=== PATIENT | female | born 2005 | race Caucasian/White ===

== ENCOUNTER 2025-05-08 19:18 | Emergency (ER) | payer OTHER, SELFPAY ==
--- NOTE | ~2025-05-08 | CT_ITS ---
EXAMINATION: CT abdomen pelvis wo con DATE: 05/08/2025 21:06 INDICATION: Right flank pain. TECHNIQUE: Computed tomography (CT) of the abdomen and pelvis was performed without intravenous contrast. Automated exposure control and iterative reconstruction technique were employed. The dose-length product was 389.94 mGy-cm. COMPARISON: None. FINDINGS: Lung bases do not show acute findings. No focal lesions of liver and spleen. Gallbladder, pancreas do not show acute findings. The left kidney shows no evidence of calculi are obstruction. Mild right hydronephrosis is noted due to tiny 1 to 2 mm stone in the right ureter at L4 level. No evidence of bowel obstruction. Normal size appendix. No pelvic mass or fluid collections. No acute findings of lumbar spine and pelvic bones. IMPRESSION: 1. Limited noncontrast examination is not optimal to evaluate solid viscera, neoplasms and vascular structures. 2. Tiny, 1 to 2 mm calculus in the right ureter at L4 level causing mild right hydronephrosis. Reviewed, dictated and finalized at location [facility]. [facility] IMPRESSION: 1. Limited noncontrast examination is not optimal to evaluate solid viscera, ne oplasms and vascular structures. 2. Tiny, 1 to 2 mm calculus in the right ureter at L4 level causing mild right hydronephrosis.
[2025-05-08 19:45] VITALS: BP 139/85; PULSE 93; RESP 16; TEMP 36.7; O2SAT 100
[2025-05-08 20:36] VITALS: BP 133/78; PULSE 85; RESP 18; O2SAT 98
[2025-05-08 20:53] LABS: BEDSIDEPREGUCG Negative (Negative)
[2025-05-08 20:58] LABS: Hematocrit 41.3 % (37.0-47.0); Hemoglobin 14.2 g/dL (12.0-15.0); Immature Granulocyte Percent A 0.5 % (0-0.5); Lymphocytes Absolute Auto 2.06 K/mm3 (0.9-3.2); Mean Corpuscular HGB Conc 34.4 g/dl (32-36); Mean Corpuscular Hemoglobin 29.5 pg (26-34); Mean Corpuscular Volume 85.7 fl (80-100); Nucleated Red Blood Cells Absolute Auto 0.000 K/mm3 (0.0-0.012); Nucleated Red Blood Cells Perc 0.0 % (0.0-0.2); Platelet Count Result 299 k/mm3 (150-375); Red Blood Count 4.82 M/mm3 (4.2-5.4); White Blood Count 6.6 K/mm3 (4.5-10.0)
[2025-05-08 21:03] LABS: Add Urine Microscopic? YES; Appearance Urine Clear (Clear); Glucose Urine UA Negative (Negative); Leukocyte Esterase Ur Negative LEU/UL (Negative); Nitrate Urine Negative (Negative); Non Pathogenic Casts 0-2; Specific Grav Ur 1.015 (1.001-1.035)
--- NOTE | 2025-05-08 21:03 | ED_ITS ---
HPI - General Adult General Chief complaint: Abdominal Pain Stated complaint: right flank started today Time Seen by Provider: 05/08/25 20:48 History of Present Illness HPI narrative: Patient 20-year-old female who presents emergency department chief complaint of right flank pain and nausea vomiting patient reports symptoms started around 11:00 a.m. today patient reports no blood in her urine denies urinary symptoms the patient states that she has had no prior abdominal surgeries reports her last menstrual period was within the last month. Related Data Allergies Allergy/AdvReac Type Severity Reaction Status Date / Time No Known Allergies Allergy Mild Verified 05/08/25 19:48 Review of Systems 2 Review of Systems: A 10 system review of systems was completed on the patient and is negative except for what is stated in the HPI. Nursing and ancillary documentation was reviewed. Exam 2 Narrative: GENERAL: Well-appearing, well-nourished, and in no acute distress. HEAD: Normocephalic, atraumatic. EYES: PERRLA and EOMI. ENT: Nares clear, no rhinorrhea or epistaxis. Mucous membranes moist. NECK: Supple. CHEST: Clear to auscultation. No respiratory distress. HEART: Regular rate and rhythm. No murmur heard. Normal peripheral pulses. ABDOMEN: Soft, nontender, nondistended, normal active bowel sounds. EXTREMITIES: Normal range of motion. No edema. SKIN: Warm, dry, no rash. NEURO: No focal deficits. Alert and oriented x3. PSYCH: Normal mood and affect. Course Vital Signs Vital signs: Vital Signs Temperature 36.7 C 05/08/25 19:45 Pulse Rate 93 05/08/25 19:45 Respiratory Rate 16 05/08/25 19:45 Blood Pressure 139/85 05/08/25 19:45 Pulse Oximetry 100 05/08/25 19:45 Oxygen Delivery Room Air 05/08/25 19:45 Temperature 36.7 C 05/08/25 19:45 Pulse Rate 85 05/08/25 20:36 Respiratory Rate 18 05/08/25 20:36 Blood Pressure 133/78 05/08/25 20:36 Pulse Oximetry 98 05/08/25 20:36 Oxygen Delivery Room Air 05/08/25 19:45 [facility] MDM Narrative Medical decision making narrative: Laboratory studies were obtained on the patient showed normal CBC normal CMP patient is currently resting comfortably CT scan showed a 1-2 mm stone at the UVJ on the right urinalysis did show 21-50 red blood cells in the urine The patient will be started on Flomax given a urine strainer and also given a prescription for pain medication antiemetics will be referred to Urology Differential Diagnosis Differential Diagnosis: Cholelithiasis, choledocholithiasis, pancreatitis, ureterolithiasis, appendicitis Lab Data 05/08/25 20:48 05/08/25 20:48 Labs: Lab Results 05/08/25 05/08/25 Range/Units 20:48 20:51 WBC 6.6 (4.5-10.0) K/mm3 RBC 4.82 (4.2-5.4) M/mm3 Hgb 14.2 (12.0-15.0) g/dL Hct 41.3 (37.0-47.0) % MCV 85.7 (80-100) fl MCH 29.5 (26-34) pg MCHC 34.4 (32-36) g/dl RDW 11.8 (11.5-14.5) % Plt Count 299 (150-375) k/mm3 MPV 9.7 (7.4-10.4) fl Immature Gran % (Auto) 0.5 (0-0.5) % Neut % (Auto) 59.2 (45.5-73.1) % Lymph % (Auto) 31.3 (18.3-44.2) % [place] % (Auto) 7.3 (2.6-8.5) % Eos % (Auto) 0.9 (0-4.4) % Baso % (Auto) 0.8 (0.2-1.2) % Lymph # (Auto) 2.06 (0.9-3.2) K/mm3 [place] # (Auto) 0.5 (0.1-0.6) K/mm3 Eos # (Auto) 0.1 (0-0.3) K/mm3 Baso # (Auto) 0.1 (0.0-0.1) K/mm3 Abs Immat Gran (auto) 0.03 (0.00-0.031) K/mm3 Absolute Neuts (auto) 3.9 (1.3-6.7) K/mm3 Absolute Nucleated RBC 0.000 (0.0-0.012) K/mm3 Nucleated RBC % 0.0 (0.0-0.2) % Sodium 139 (137-145) mmol/L Potassium 3.8 (3.4-5.0) mmol/L Chloride 105 (98-107) mmol/L Carbon Dioxide 26 (22-30) mmol/L Anion Gap 8 (4-12) mmol/L BUN 13 (7-17) mg/dL Creatinine 0.99 (0.7-1.0) mg/dL Estim Creat Clear Calc 104 ml/min Estimated GFR > 60 (59 - ) Glucose 91 (65-110) mg/dL Calcium 9.6 (8.4-10.2) mg/dL Total Bilirubin 0.6 (0.2-1.3) mg/dL AST 28 (14-36) U/L ALT 18 (6-35) U/L Alkaline Phosphatase 75 (38-126) U/L Total Protein 8.2 (6.3-8.2) g/dL Albumin 4.9 (3.5-5.1) g/dL Lipase 84 (23-300) U/L Urine Color Yellow (Yellow) Urine Appearance Clear (Clear) Urine pH 6.0 (5.0-9.0) Ur Specific [place] 1.015 (1.001-1.035) Urine Protein Negative (Negative) mg/dL Urine Glucose (UA) Negative (Negative) mg/dL Urine Ketones Trace H (Negative) mg/dL Ur Blood (Man) 3+ H (Negative) Urine Nitrate Negative (Negative) Urine Bilirubin Negative (Negative) Urine Urobilinogen 0.2 (<2.0) mg/dL Leukocyte Esterase Rfl Negative (Negative) JOHNNIE/UL Urine RBC 21-50 H (0-2) /hpf Urine WBC 0-5 (0-3) /hpf Ur Squamous Epith Cells Occasional (Few) /hpf Urine Bacteria None seen /hpf Urine Casts 0-2 POC Urine HCG, Qual Negative (Negative) Imaging Data Radiologist's impression: ITS Impressions Abdomen/Pelvis CT 05/08/25 21:12 IMPRESSION: 1. Limited noncontrast examination is not optimal to evaluate solid viscera, neoplasms and vascular structures. 2. Tiny, 1 to 2 mm calculus in the right ureter at L4 level causing mild right hydronephrosis. Discharge Plan Discharge Clinical Impression: Ureterolithiasis, Acute right flank pain Patient Disposition: Home Condition: Stable Instructions: Antibiotic Form, How to Strain Your Urine (ED), Abdominal Pain (ED), Flank Pain (ED), Ureteral Stones (ED) Patient Language: Hong Konger Prescriptions: New hydrocodone-acetaminophen 5-325 mg tablet 1 tablet PO Q6H PRN (Reason: pain) 3 Days Qty: 12 0RF tamsulosin 0.4 mg capsule 0.4 mg PO DAILY Qty: 10 0RF ondansetron 4 mg tablet,disintegrating 4 mg PO Q8H PRN (Reason: nausea and vomiting) Qty: 10 0RF Follow-up/Referrals: Chris Garcia MD [Physician, Family Practice] Trung Rogers MD [Physician, Urology] UNKNOWN,DOCTOR [Primary Care Provider] Time of Disposition: 21:31
[2025-05-08 21:06] LABS: Alanine Aminotransferase 18 U/L (6-35); Albumin Level 4.9 g/dL (3.5-5.1); Alkaline Phosphatase 75 U/L (38-126); Anion Gap 8 mmol/L (4-12); Aspartate Amino Transferase 28 U/L (14-36); Bilirubin,Total 0.6 mg/dL (0.2-1.3); Blood Urea Nitrogen 13 mg/dL (7-17); Calcium 9.6 mg/dL (8.4-10.2); Carbon Dioxide 26 mmol/L (22-30); Chloride 105 mmol/L (98-107); Estimated CRCL calculation 104 ml/min; Estimated Glomerular Filt Rate > 60; Glucose 91 mg/dL (65-110); Lipase 84 U/L (23-300); Potassium 3.8 mmol/L (3.4-5.0); Sodium 139 mmol/L (137-145); Total Protein 8.2 g/dL (6.3-8.2)
--- OUTSIDE RECORDS SUMMARY | 2025-05-08 21:42 | XMS_ITS | Clinical Summary ---
Author Organization [facility] Address [address] [place] [address] Care Team Providers Care Thermostat Maker Name Role Phone Deidra Dunne MD Primary Care Provider Source Comments [facility],non-owned Affiliates and Associated Physician Practices is amultiple site organization consisting of ambulatory clinics and hospital sitesin [place] and [place]. This disclosure is being madepursuant to the Care Everywhere program and may not contain all information available regarding this patient. Last updated 18.[facility] Allergies No known active allergies Medications * Be aware that medications may not be up to date on this document. Alwaysverify current medications with the patient. Ibuprofen (ADVIL PO) Take 400 mg by mouth Active Active Problems Problem Noted Date Diagnosed Date Closed avulsion fracture of right ankle 03/25/20 18 Social History Tobacco Use Types Packs/Day Years Used Date Smoking Tobacco: Never Smokeless Tobacco: Never Comments No Sex and Gender Information Value Date Recorded Sex Assigned at Not on file Legal Sex Female 6:48 AM [employer] Gender Identity Not on file Sexual Orientation Not on file Last Filed Vital Signs Vital Sign Reading Time Taken Comments Blood Pressure - - Pulse - - Temperature - - Respiratory Rate - - Oxygen Saturation - - Inhaled Oxygen Concentration - - Weight 88.5 kg (195 lb) 04/01/2019 9:34 AM [employer] Height 172.7 cm (5' 8) 04/01/2019 9:34 AM [employer] Body Mass Index 29.65 04/01/2019 9:34 AM [employer] Plan of Treatment Health Maintenance Due Date Last Done Comments HIV SCREENING 2018 HPV VACCINE (1 - 3-dose series) 2018 CHLAMYDIA/GONORRHEA SCREENING 2019 MENINGOCOCCAL (Group B) VACC INE SHARED DECISION-MAKING (1 of 2 - Standard) 2019 HEPATITIS C SCREENING 02/14/2021 DTAP/TDAP/TD VACCINES (1 - Tdap) 2022 HEPATITIS B VACCINE (1 of 3 - 19+ 3-dose series) 2022 DEPRESSION SCREENING 05/28/2024 COVID-19 VACCINE (1 - 2024-2 6 season) 2025 INFLUENZA VACCINE (#1) 2025 ZOSTER VACCINE (1 of 2) 2053 HIB VACCINE Aged Out No longer eligi ble based on patient's age to complete this topic MENINGOCOCCAL GROUPS A/C/Y/W VACCINE Aged Out No longer eligible b ased on patient's age to complete this topic PNEUMOCOCCAL VACCINE Aged Out No long er eligible based on patient's age to complete this topic Insurance [facility] Address: [facility] [id number] [place] [address] [facility] [place] [place]: [place] [address] Care Teams Thermostat Maker Relationship Specialty Start Date End Date Deidra Dunne MD [address] [place] [id number] PCP - General Pediatrics 03/25/18
--- OUTSIDE RECORDS SUMMARY | 2025-05-08 21:42 | XMS_ITS | Clinical Summary ---
Author Organization [facility] Address [address] [place] [id number] Care Team Providers Care Sign Shop Supervisor Name Role Phone Deidra Dunne MD Primary Care Provider [phone] Allergies No known active allergies Medications No known medications Active Problems No known active problems Social History Tobacco Use Types Packs/Day Years Used Date Smoking Tobacco: Never Smokeless Tobacco: Never Personal Safety Answer Date Recorded Getting School Help Needed Not on file 08/10 Comments Unknown Sex and Gender Information Value Date Recorded Sex Assigned at Not on file Legal Sex Female 4:46 AM [employer] Gender Identity Not on file Sexual Orientation Not on file Last Filed Vital Signs Vital Sign Reading Time Taken Comments Blood Pressure 121/78 03/08/2021 2:12 PM CDT Pulse 73 03/08/2021 2:12 PM CDT Temperature - - Respiratory Rate - - Oxygen Saturation - - Inhaled Oxygen Concentration - - Weight 98.3 kg (216 lb 12.8 oz) 03/08/2021 2:12 PM CDT Height 172.7 cm (5' 8) 03/08/2021 2:12 PM CDT Body Mass Index 32.96 03/08/2021 2:12 PM CDT Plan of Treatment Not on file Insurance [employer] OOS Member Subscriber Plan / Payer (Ef fective 2019-Present) Name:Chintan Ramirez Relation to Subscriber:Child Name:JJ RAMIREZ Date of :1973 (Home) Address: [address] [place] [address] Payer ID:[id number] (NAIC) Type:[facility] Address: [facility] [address] [place] [id number] * Guarantor: Chintan Ramirez Account Type Relation to Patient Date of Phone Billing Address Personal/Family Self 2005 [address] [place] [address] Care Teams Sign Shop Supervisor Relationship Specialty Start Date End Date Deidra Dunne MD PCP - General Pediatrics 02/22/21
[2025-05-08] MEDS: TAMSULOSIN HCL 0.4 MG CAPSULE PO (21:49)
[2025-05-08 21:57] VITALS: BP 120/75; PULSE 92; RESP 22; O2SAT 97
--- NOTE | 2025-05-08 22:03 | PC.NURSE ---
Per EDP Krystal, Ativan order placed on wrong chart and to cancel order.
== END 2025-05-08 21:59 | disposition home or self-care (01) ==
PROVIDERS: Student in an Organized Health Care Education/Training Program; Emergency Provider Emergency Medicine
DX: N13.2 Hydronephrosis with renal and ureteral calculous obstruction (principal)
CPT/HCPCS: 36415; 74176; 80053; 81001; 81025; 83690; 85025; 99284; A9270